=== PATIENT | female | born 1950 | race Caucasian/White ===

== ENCOUNTER → 2017-02-12 | Day surgery (SDC) | payer OTHER, MEDICARE ==
[~2017-02-12] VITALS: Ht 154.9 cm; Wt 88.5 kg
[~2017-02-12] MED LIST: ACETAMINOPHEN 325 MG TAB PO PRN; ACETAMINOPHEN TAB 650MG DOSE (2X325MG) PO PRN; ACETYLCHOLINE OPHTH SOLN 1% 2ML As Ordered ONE; AMBI5TAB PO; ASPI1TAB PO; AcetaZOLAMIDE 500 MG ER CAP PO ONE; BALANCED SALT IRRIGATION SOLUTION 500ML BAG (FOR OR EYE MACHINE) As Ordered ONE; BSS with VANC/TOB/EPI for EYE CASES IR ONE; CALC600T57 PO; CEFUROXIME 1MG/0.1ML INTRACAMERAL INJ As Ordered ONE; CYCLOPENTOLATE 2% OPHTH SOLN OD ONE; D5W/0.2% SODIUM CHLORIDE 1,000 ML IV SCH; D5W/0.2% SODIUM CHLORIDE 250 ML IV SCH; FISHCAP5 PO; HEALON DUET (HEALON 10MG/ML 0.55ML & HEALON ENDOCOAT 30MG/ML 0.85ML) As Ordered ONE; KETOROLAC 0.5% OPHTH SOLN OD ONE; LIDOCAINE 1% SDV 5 ML VIAL As Ordered ONE; LIDOCAINE 4% INJ 5 ML AMP OU ONE; LISI20TA3 PO; MELA10TA3 PO; MELO7.5T6 PO; MIDAZOLAM INJ 2 MG/2 ML VIAL (J2250) As Ordered ONE; MONT10TA2 PO; OFLOXACIN 0.3 % (OCUFLOX) OPTH SOL 5ML OD ONE; ONDANSETRON 4MG/2ML VIAL (J2405) IV PRN; PHENYLEPHRINE 2.5% OPHTH SOL 2ML OD ONE; POVIDONE-IODINE 5% OPHTH PREP SOL 30ML As Ordered ONE; PROPARACAINE 0.5% OPHTH SOL 15ML OD PRN; PROT1TAB2 PO; TIOT18INH INH; TRIMETHOBENZAMIDE 300 MG CAP PO PRN; TROPICAMIDE 1% OPHTH SOLN 2 ML OD ONE; fentaNYL 100 MCG/2 ML INJECTION (J3010) As Ordered ONE
[2017-02-12 13:35] VITALS: BP 142/62
--- NOTE | 2017-02-13 08:28 | RO ---
DATE OF PROCEDURE: 02/12/2017 PREPROCEDURE DIAGNOSIS: Age related nuclear cataract right eye. POSTPROCEDURE DIAGNOSIS: Age related nuclear cataract right eye. PROCEDURE: Femtosecond cataract extraction with posterior chamber intraocular lens implantation. The lens used was AU00T0, 16.5 diopter. SURGEON: Modesta Gómez MD GRADALL OPERATOR: ANESTHESIA: Topical with sedation. DESCRIPTION OF PROCEDURE: The patient was brought to the operating room and put under the femtosecond laser. A lid speculum was placed between the lids, and the laser was lowered on. Docking was achieved with good suction. The laser procedure was performed with no difficulty. The laser was then removed from the eye, and the lid speculum was removed. The laser was moved over to the operating microscope and prepped and draped in the usual fashion. A lid speculum was placed between the lids. The eye was fixated. The side port incision was opened up with a spatula. 1% non-preservative lidocaine was instilled; then, viscoelastic was instilled. The main incision was then opened with the spatula. The capsulorrhexis was removed from the eye with the [employer]tr[employer] forceps. The lens was then hydrodissected, and a phacoemulsification unit was used to make a groove in the nucleus and one meridian. The nucleus was cracked into four quadrants, and then each quadrant was removed with the phacoemulsification unit. Any remaining cortex was removed with the irrigation and aspiration (I and A) unit. The capsular bag was refilled with viscoelastic. A posterior chamber intraocular lens was placed in the capsular bag. The remaining viscoelastic was removed. The wound was hydrated. Miochol and cefuroxime were instilled. The wound was watertight. The patient tolerated the procedure well and went to the recovery room in stable condition.
== END | disposition home or self-care (01) ==
LOC: M SDC 10:55
PROVIDERS: ATTEND Ophthalmology
DX: H25.11 Age-related nuclear cataract, right eye (principal); I10 Essential (primary) hypertension; K21.9 Gastro-esophageal reflux disease without esophagitis; G47.30 Sleep apnea, unspecified; Z79.899 Other long term (current) drug therapy
CPT/HCPCS: 66984; J2250; J3010

== ENCOUNTER → 2017-06-25 | Outpatient (CLI) | payer OTHER, MEDICARE ==
[~2017-06-25] MED LIST changes: -ACETAMINOPHEN 325 MG TAB PO PRN; -ACETAMINOPHEN TAB 650MG DOSE (2X325MG) PO PRN; -ACETYLCHOLINE OPHTH SOLN 1% 2ML As Ordered ONE; -AcetaZOLAMIDE 500 MG ER CAP PO ONE; -BALANCED SALT IRRIGATION SOLUTION 500ML BAG (FOR OR EYE MACHINE) As Ordered ONE; -BSS with VANC/TOB/EPI for EYE CASES IR ONE; -CEFUROXIME 1MG/0.1ML INTRACAMERAL INJ As Ordered ONE; -CYCLOPENTOLATE 2% OPHTH SOLN OD ONE; -D5W/0.2% SODIUM CHLORIDE 1,000 ML IV SCH; -D5W/0.2% SODIUM CHLORIDE 250 ML IV SCH; -HEALON DUET (HEALON 10MG/ML 0.55ML & HEALON ENDOCOAT 30MG/ML 0.85ML) As Ordered ONE; -KETOROLAC 0.5% OPHTH SOLN OD ONE; -LIDOCAINE 1% SDV 5 ML VIAL As Ordered ONE; -LIDOCAINE 4% INJ 5 ML AMP OU ONE; -MELO7.5T6 PO; +MELO7.5T7 PO; -MIDAZOLAM INJ 2 MG/2 ML VIAL (J2250) As Ordered ONE; -OFLOXACIN 0.3 % (OCUFLOX) OPTH SOL 5ML OD ONE; -ONDANSETRON 4MG/2ML VIAL (J2405) IV PRN; -PHENYLEPHRINE 2.5% OPHTH SOL 2ML OD ONE; -POVIDONE-IODINE 5% OPHTH PREP SOL 30ML As Ordered ONE; -PROPARACAINE 0.5% OPHTH SOL 15ML OD PRN; -TRIMETHOBENZAMIDE 300 MG CAP PO PRN; -TROPICAMIDE 1% OPHTH SOLN 2 ML OD ONE; -fentaNYL 100 MCG/2 ML INJECTION (J3010) As Ordered ONE
[2017-06-25 19:46] LABS: ALBUMIN 3.8 GM/DL (3.2-5.2); ALBUMIN/GLOBULIN RATIO 1.23 (1.00-1.93); BILIRUBIN,TOTAL 0.6 MG/DL (0.2-1.0); CREATININE FOR GFR 0.99 MG/DL (0.55-1.02); GLOMERULAR FILTRATION RATE 59.9 (>45); POTASSIUM SERUM 3.8 MEQ/L (3.5-5.1); TOTAL PROTEIN 6.9 GM/DL (6.4-8.2)
[2017-06-25 20:46] LABS: BASO % 0.7 % (0.0-1.0); EOS # 0.2 K/mm3 (0.0-0.50); EOS % 3.8 % (0.0-3.0); LARGE UNSTAINED CELL # 0.1 K/mm3 (0.0-0.4); LARGE UNSTAINED CELL % 1.8 % (0.0-4.0); LYMPH % 33.5 % (24.0-44.0); MEAN CORPUSCULAR HGB CONC 33.6 g/dl (32.0-36.5); MEAN CORPUSCULAR VOLUME 92.3 fl (80.0-96.0); MONO # 0.4 K/mm3 (0.0-0.8); MONO % 6.6 % (0.0-5.0); NEUTROPHILS % 53.7 % (36.0-66.0); PLATELET COUNT, AUTOMATED 152 k/mm3 (150-450); RED CELL DISTRIBUTION WIDTH 14.3 % (11.5-14.5); WHITE BLOOD COUNT 5.6 K/mm3 (4.0-10.0)
== END ==
LOC: M WUC 16:35
PROVIDERS: ATTEND Family Medicine
DX: Z01.818 Encounter for other preprocedural examination (principal)

== ENCOUNTER → 2017-11-11 | Outpatient (CLI) | payer OTHER, MEDICARE ==
--- NOTE | 2017-11-12 09:58 | RADONC ---
RADIATION ONCOLOGY CONSULTATION NOTE DATE OF SERVICE: 11/11/2017 CHART NUMBER: [id number]. DIAGNOSIS: Right breast cancer. STAGE: IIA, T2N0M0. ECOG PERFORMANCE STATUS: 0. CONSULTATION NOTE: Ms. 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 HISTORY OF PRESENT ILLNESS: The patient was in the usual state of health until routine mammogram was done, which revealed a suspicious lesion in her right breast in the 12 o'clock position. On 10/20/2017, the patient underwent lumpectomy and sentinel lymph node biopsy. Pathology revealed a 2.2 cm x 1.6 cm x 1.0 cm moderately differentiated invasive ductal carcinoma. All margins of resection were negative, with the closest margin having 3 mm clearance. There was no evidence of lymph vascular invasion seen. The tumor was estrogen receptor and progesterone receptor positive and HER2 negative. A total of two axillary lymph nodes were sampled and were negative for metastatic disease. Oncotype testing was sent, and the results are pending. The patient is now being seen by me for a discussion of postoperative radiation therapy for conservative breast management as a therapeutic option. PAST MEDICAL HISTORY: The patient's past medical history is positive for hypertension. ALLERGIES: The patient is allergic to IBUPROFEN. SOCIAL HISTORY: The patient does not smoke cigarettes. She drinks alcohol socially. FAMILY HISTORY: The patient's family history is negative for breast cancer or other malignancies. REVIEW OF SYSTEMS: The patient's review of systems is noncontributory. She denies nausea, vomiting, fevers, chills, night sweats, diplopia, headaches, anxiety or depression, anorexia, weight loss, visual disturbances, chest pain, urinary or bowel difficulties, bone pain, or neurological problems. PHYSICAL EXAMINATION: The patient is a well-developed, well-nourished female in no acute distress. HEENT examination is normocephalic, atraumatic. Extraocular movements are intact. There is no palpable cervical, supraclavicular, infraclavicular, axillary, or inguinal lymphadenopathy present. Lungs are clear to auscultation and percussion. Heart has a regular rate and rhythm. Abdomen is benign with no hepatosplenomegaly, masses, or tenderness. Breast examination reveals no masses or discharge bilaterally. Skeletal examination reveals no tenderness to pressure or percussion of the bony skeleton. Extremities reveal no clubbing, cyanosis, or edema. Neurologic examination is grossly intact, as is the remainder of the physical examination. ASSESSMENT: Clearly, the patient is a candidate for external beam radiation therapy, and I have so informed her. I have discussed with the patient in detail the potential benefits, as well as possible acute and chronic sequelae of external beam radiation therapy. We have discussed logistics of treatment planning, simulation, and subsequent fractionated daily radiation treatments. I have scheduled the patient for the next available simulation slot, and radiation treatments will begin subsequently. She is scheduled to see her medical oncologist on November 19. Radiation treatments clearly would be given after systemic therapy. I will defer the opinion of systemic therapy to her medical oncologist once the Oncotype test results are available. Once again, clearly, if radiation is indicated following Oncotype testing, simulation will be deferred until following completion of systemic therapy. I did briefly discuss with the patient the traditional fractionation schedules versus the [place] protocol with hypofractionation. Once again, these recommendations will be adjusted pending the results of her Oncotype test. cc: Saurabh Whatley MD, FRCPC Lisa Jacobson MD
== END ==
LOC: M ONCR 13:12
PROVIDERS: ATTEND Radiology Radiation Oncology
DX: C50.919 Malignant neoplasm of unspecified site of unspecified female breast (principal)

== ENCOUNTER 2017-11-20 14:23 | Outpatient (RCR) | payer OTHER, MEDICARE ==
[2017-11-20 15:12] LABS: MEAN CORPUSCULAR HEMOGLOBIN 30.5 pg (27.0-33.0); MEAN CORPUSCULAR HGB CONC 33.7 g/dl (32.0-36.5); MEAN CORPUSCULAR VOLUME 90.4 fl (80.0-96.0); PLATELET COUNT, AUTOMATED 160 10^3/uL (150-450); RED CELL DISTRIBUTION WIDTH 14.1 % (11.5-14.5); WHITE BLOOD COUNT 5.9 10^3/uL (4.0-10.0)
== END 2017-11-30 ==
LOC: M ONCR 14:23
DX: C50.811 Malignant neoplasm of overlapping sites of right female breast (principal)
CPT/HCPCS: 77300

== ENCOUNTER → 2017-11-20 | Outpatient (CLI) | payer OTHER, MEDICARE | LOC: M RAD 14:11 | PROVIDERS: ATTEND Radiology Radiation Oncology | DX: C50.911 Malignant neoplasm of unspecified site of right female breast (principal) ==

== ENCOUNTER 2017-12-02 11:59 | Outpatient (RCR) | payer OTHER, MEDICARE | END 2017-12-31 | LOC: M ONCR 11:59 | DX: C50.811 Malignant neoplasm of overlapping sites of right female breast (principal) | CPT/HCPCS: 77300 ==

== ENCOUNTER → 2018-01-28 | Outpatient (CLI) | payer OTHER, MEDICARE | LOC: M ONCR 14:35 | DX: C50.811 Malignant neoplasm of overlapping sites of right female breast (principal) | CPT/HCPCS: G0463 ==

== ENCOUNTER 2018-10-28 11:35 | Day surgery (SDC) | payer OTHER, MEDICARE ==
[~2018-10-28 11:35] MED LIST changes: +ACETAMINOPHEN 325 MG TAB PO; -AMBI5TAB PO; -ASPI1TAB PO; -CALC600T57 PO; -FISHCAP5 PO; -LISI20TA3 PO; -MELA10TA3 PO; -MELO7.5T7 PO; -MONT10TA2 PO; +PHENYLEPHRINE HCL 10 % OPHTH. SOL 5ML OS; +PROPARACAINE 0.5% OPHTH SOL 15ML OS; -PROT1TAB2 PO; -TIOT18INH INH
[2018-10-28] MEDS: LIDOCAINE 3.5 % 1ML OPHTH TOPICAL GEL OU (12:21)
[2018-10-28] MEDS: CYCLOPENTOLATE 2% OPHTH SOLN 2ML BTL OS (12:21)
[2018-10-28] MEDS: PHENYLEPHRINE 2.5% OPHTH SOL 2ML OS (12:21)
[2018-10-28] MEDS: TROPICAMIDE 1% OPHTH SOLN 2ML OS (12:21)
[2018-10-28] MEDS: OFLOXACIN 0.3 % (OCUFLOX) OPTH SOL 5ML OS (12:21)
[2018-10-28] MEDS ORDERED: MIDAZOLAM INJ 2 MG/2 ML VIAL (J2250) As Ordered (13:57)
[2018-10-28] MEDS ORDERED: fentaNYL 100 MCG/2 ML INJECTION (J3010) As Ordered (13:57)
[2018-10-28] MEDS: CEFUROXIME 1MG/0.1ML INTRACAMERAL INJ As Ordered (13:59)
[2018-10-28] MEDS: BALANCED SALT IRRIGATION SOLUTION 500ML BAG (FOR OR EYE MACHINE) As Ordered (13:59)
[2018-10-28] MEDS: LIDOCAINE 1% SDV 5 ML VIAL As Ordered (13:59)
[2018-10-28] MEDS: POVIDONE-IODINE 5% OPHTH PREP SOL 30ML As Ordered ×2 (13:59)
[2018-10-28] MEDS: HEALON DUET PRO(HEALON 10MG/ML 0.55ML & HEALON ENDOCOAT 30MG/ML 0.85ML) As Ordered (13:59)
[2018-10-28] MEDS ORDERED: AcetaZOLAMIDE 500 MG ER CAP As Ordered (14:24)
[2018-10-28] MEDS: AcetaZOLAMIDE 500 MG ER CAP PO (14:45)
[2018-10-28] MEDS ORDERED: ACETAMINOPHEN TAB 650MG DOSE (2X325MG) PO (14:45)
[2018-10-28] MEDS ORDERED: TRIMETHOBENZAMIDE 300 MG CAP PO (14:45)
[2018-10-28] MEDS ORDERED: LR 1,000 ML IV (14:45)
[2018-10-28] MEDS ORDERED: ONDANSETRON 4MG/2ML VIAL (J2405) IV (14:45)
== END 2018-10-28 14:55 | disposition home or self-care (01) ==
LOC: M SDC 11:35
DX: H25.12 Age-related nuclear cataract, left eye (principal); H52.202 Unspecified astigmatism, left eye; I10 Essential (primary) hypertension; K21.9 Gastro-esophageal reflux disease without esophagitis; M12.9 Arthropathy, unspecified; M54.9 Dorsalgia, unspecified; F41.9 Anxiety disorder, unspecified; F32.9 Major depressive disorder, single episode, unspecified; R06.83 Snoring; G47.33 Obstructive sleep apnea (adult) (pediatric); E66.9 Obesity, unspecified; Z68.37 Body mass index [BMI] 37.0-37.9, adult; Z88.6 Allergy status to analgesic agent; Z79.899 Other long term (current) drug therapy; Z85.3 Personal history of malignant neoplasm of breast; Z92.3 Personal history of irradiation; Z98.41 Cataract extraction status, right eye; Z90.710 Acquired absence of both cervix and uterus
CPT/HCPCS: 66984

== ENCOUNTER 2019-08-18 09:39 | Emergency (ER) | payer OTHER, MEDICARE ==
[~2019-08-18] VITALS: Ht 152.4 cm; Wt 86.4 kg
[~2019-08-18 09:39] MED LIST changes: -ACETAMINOPHEN 325 MG TAB PO; +AMBI5TAB PO; +ASPI81TA26 PO; +CALC600T57 PO; +FISHCAP5 PO; +LETR2.5T2 PO; +LISI20TA20 PO; +MELA10TA3 PO; +MELO7.5T7 PO; +MONT10TA2 PO; +OMEP20CA4 PO; -PHENYLEPHRINE HCL 10 % OPHTH. SOL 5ML OS; -PROPARACAINE 0.5% OPHTH SOL 15ML OS; +PROT1TAB2 PO; +SILV40CR EXT; +TIOT18INH INH; +TRAZ-252 PO; +VENL37.598 PO
[2019-08-18 10:18] LABS: BASO % 0.4 % (0.0-1.0); EOS # 0.1 10^3/uL (0.0-0.5); EOS % 0.7 % (0.0-3.0); HEMATOCRIT 44.4 % (36.0-47.0); HEMOGLOBIN 15.1 g/dl (12.0-15.5); LYMPH # 1.6 10^3/uL (1.5-5.0); LYMPH % 17.3 % (24.0-44.0); MEAN CORPUSCULAR HEMOGLOBIN 31.2 pg (27.0-33.0); MEAN CORPUSCULAR VOLUME 91.7 fl (80.0-96.0); MONO # 0.4 10^3/uL (0.0-0.8); MONO % 4.4 % (0.0-5.0); NEUTROPHILS # 7.1 10^3/uL (1.5-8.5); PLATELET COUNT, AUTOMATED 190 10^3/uL (150-450); RED BLOOD COUNT 4.84 10^6/uL (4.00-5.40); WHITE BLOOD COUNT 9.2 10^3/uL (4.0-10.0)
[2019-08-18] MEDS ORDERED: MORPHINE 2 MG/ML 1ML SYRINGE (J2270) IV ONE ×2 (10:30→11:15)
[2019-08-18] MEDS ORDERED: ONDANSETRON 4MG/2ML VIAL (J2405) IV ONE (10:30)
[2019-08-18 10:52] LABS: ALBUMIN 4.2 GM/DL (3.2-5.2); ALT/SGPT 16 U/L (12-78); BILIRUBIN,DIRECT 0.2 MG/DL (0.0-0.2); BILIRUBIN,TOTAL 0.6 MG/DL (0.2-1.0); BLOOD UREA NITROGEN 23 MG/DL (7-18); CALCIUM LEVEL 10.1 MG/DL (8.8-10.2); CARBON DIOXIDE LEVEL 28 MEQ/L (21-32); CHLORIDE LEVEL 102 MEQ/L (98-107); CREATININE FOR GFR 0.91 MG/DL (0.55-1.30); GLOMERULAR FILTRATION RATE > 60.0 (>45); GLUCOSE, FASTING 159 MG/DL (70-100); LIPASE 75 U/L (73-393); POTASSIUM SERUM 4.1 MEQ/L (3.5-5.1); SODIUM LEVEL 138 MEQ/L (136-145); TOTAL PROTEIN 7.4 GM/DL (6.4-8.2)
[2019-08-18] MEDS ORDERED: diphenhydrAMINE INJ 50MG/ML VIAL (J1200) IV STA (11:11)
[2019-08-18] MEDS ORDERED: KETOROLAC 30 MG/ML VIAL (J1885) IV ONE (11:15)
--- NOTE | 2019-08-18 11:17 | REP ---
CT ABDOMEN AND PELVIS WITHOUT CONTRAST: CT abdomen and pelvis performed without IV contrast. Sagittal and coronal reconstruction images are performed. Visualized lung bases demonstrate minor fibroatelectatic change. The liver, gallbladder, spleen, adrenals and pancreas are grossly unremarkable. There is moderate right hydronephrosis. This is caused by a 4 mm calculus at the right ureteropelvic junction. There is also an intrarenal calculus inferiorly on the right measuring 8 mm in diameter. No left ureteral calculus is seen. There is no left hydronephrosis. There is mild atherosclerotic calcification of the abdominal aorta without aneurysm. There is no adenopathy. There is no free air or free fluid. There is no bowel wall thickening. The appendix is normal. I see no pelvic mass. Urinary bladder is not well distended and not optimally evaluated. There are degenerative changes of the spine. IMPRESSION: Moderate right hydronephrosis is caused by a 4 mm calculus at the right ureteropelvic junction. Right intrarenal calculus inferiorly measures 8 mm. No left renal calculus or hydronephrosis. Normal appendix. Electronically Signed by Aris Duckworth MD 08/19/2019 04:41 P
[2019-08-18] MEDS ORDERED: NS 1,000 ML IV ONE (12:00)
[2019-08-18] MEDS ORDERED: FLOM0.4C39 PO (12:24)
[2019-08-18] MEDS ORDERED: CIPR-249 PO (12:24)
[2019-08-18 12:34] VITALS: BP 117/62
== END 2019-08-18 12:39 | disposition home or self-care (01) ==
LOC: M ED 09:39
DX: N13.30 Unspecified hydronephrosis (principal); N39.0 Urinary tract infection, site not specified; N20.1 Calculus of ureter; J45.909 Unspecified asthma, uncomplicated; I10 Essential (primary) hypertension; K21.9 Gastro-esophageal reflux disease without esophagitis; Z78.0 Asymptomatic menopausal state; Z79.899 Other long term (current) drug therapy; Z88.8 Allergy status to other drugs, medicaments and biological substances
CPT/HCPCS: 74176; 80048; 80076; 81001; 83690; 85025; 87086; 96361; 96374; 96375; 99284; J1200; J1885; J2270; J2405